=== PATIENT | male | born 1955 | race Caucasian/White ===

== ENCOUNTER → 2018-03-30 | Outpatient (CLI) | payer MEDICARE, BC ==
[~2018-03-30] MED LIST: CLON1 PO; DOXE50 PO; FURO40 PO; HARVONI 90-4001 EACH PO; HYDCHL25 PO; HYDMOR2 PO; INSDET100 SQ; INSULISPEN SC; LACT10SY PO; OXYC5 PO; POTCHL20ER PO; PROP10 PO; RIBA200 PO; RIFA550T2 PO; RXHYDMOR2 PO; SITA100T2 PO; TAMS.4ER PO; TESTOSTERONE CREAM TOP
== END ==
LOC: LAB SHORT 13:09 → LAB 13:09
DX: R19.7 Diarrhea, unspecified (principal)
CPT/HCPCS: 87493

== ENCOUNTER 2019-12-24 13:39 | Emergency (ER) | payer MEDICARE, BC ==
[~2019-12-24] VITALS: Ht 172.7 cm; Wt 93.9 kg
[2019-12-24 14:30] LABS: BASOPHILS ABSOLUTE AUTO 0.02 K/mm3 (0.00-0.23); BASOPHILS PERCENT AUTO 1 % (0-2); EOSINOPHILS ABSOLUTE AUTO 0.03 K/mm3 (0.00-0.68); EOSINOPHILS PERCENT AUTO 1 % (0-6); Hematocrit 52.9 % (37.0-53.0); Hemoglobin 18.4 g/dL (13.5-17.5); IMMATURE GRAN PERCENT AUTO 0 % (0-1); LYMPHOCYTES ABSOLUTE AUTO 0.52 K/mm3 (0.84-5.20); LYMPHOCYTES PERCENT AUTO 13 % (21-46); MONOCYTES ABSOLUTE AUTO 0.31 K/mm3 (0.16-1.47); MONOCYTES PERCENT AUTO 8 % (4-13); Mean Corpuscular HGB 31.6 pg (26.0-34.0); Mean Corpuscular HGB Conc 34.8 g/dL (31.5-36.5); Mean Corpuscular Volume 91 fL (80-100); Mean Platelet Volume 10.7 fL (9.1-12.4); NEUTROPHILS ABSOLUTE AUTO 3.27 K/mm3 (1.96-9.15); NEUTROPHILS PERCENT AUTO 79 % (41-73); RDW Coefficient Variation 13.8 % (11.7-14.2); RDW Standard Deviation 46.3 fL (35.1-46.3); Red Blood Cell Count 5.83 M/mm3 (4.30-5.90); White Blood Cell Count 4.15 K/mm3 (4.00-11.30)
[2019-12-24 14:33] LABS: Platelet Count 34 K/mm3 (150-400)
[2019-12-24 14:47] LABS: Alanine Aminotransfer (ALT/SGP 68 U/L (12-78); Albumin, Blood 4.2 g/dL (3.4-5.0); Albumin/Globulin Ratio 1.4 (0.8-1.8); Alk Phos 130 U/L (50-136); Anion Gap 6 mmol/L (6-16); Aspartate Aminotrans (AST/SGOT 52 U/L (12-37); Bilirubin, Total 1.6 mg/dL (0.1-1.0); Blood Urea Nitrogen 15 mg/dL (8-24); Bun/Creatinine Ratio 10.4 (12.0-20.0); CO2, Blood 28 mmol/L (21-32); Calcium, Blood 9.7 mg/dL (8.5-10.1); Chloride, Blood 104 mmol/L (98-108); Creatinine, Blood 1.44 mg/dL (0.60-1.20); Globulin, Blood 3.1 g/dL (2.2-4.0); Glomerular Filtration Rate 52 (60-); Glucose, Blood 187 mg/dL (70-99); Potassium, Blood 3.9 mmol/L (3.5-5.5); Sodium, Blood 138 mmol/L (136-145); Total Protein, Blood 7.3 g/dL (6.4-8.2); Troponin I <0.015 ng/mL (0.000-0.040)
[2019-12-24 15:10] LABS: Source, Urine Clean Catch
[2019-12-24 15:18] LABS: Appearance, Urine Clear (Clear); Bilirubin, Urine Neg (Neg); Blood, Urine 4+ (Neg); Color, Urine Yellow (P-Yellow); Glucose Qualitative, Urine Neg (Neg); Ketones, Urine Neg (Neg); Leukocyte Esterase, Urine Neg (Neg); Nitrite, Urine Neg (Neg); Protein, Urine 3+ (Neg); Urobilinogen, Urine NORM (Normal)
[2019-12-24 15:25] LABS: Bacteria Few /hpf; Squamous Epithelial Cells Rare /hpf (Few); White Blood Cells, Urine 0-2 /hpf (0-5)
[2019-12-24] MEDS ORDERED: Ativan1 MG PO (15:54)
== END 2019-12-24 16:31 | disposition home or self-care (01) ==
LOC: ER 13:39
PROVIDERS: Physician Assistant
DX: R10.9 Unspecified abdominal pain (principal); R53.83 Other fatigue; R41.0 Disorientation, unspecified; T36.8X5A Adverse effect of other systemic antibiotics, initial encounter; T36.3X5A Adverse effect of macrolides, initial encounter; R05 Cough; F41.9 Anxiety disorder, unspecified; Z88.1 Allergy status to other antibiotic agents; Z88.2 Allergy status to sulfonamides; Z88.8 Allergy status to other drugs, medicaments and biological substances; E11.9 Type 2 diabetes mellitus without complications; J44.9 Chronic obstructive pulmonary disease, unspecified; D86.9 Sarcoidosis, unspecified; Z79.4 Long term (current) use of insulin; Z79.899 Other long term (current) drug therapy
CPT/HCPCS: 70450; 71045; 80053; 81001; 84484; 85025; 93005; 93010; 99284-25

== ENCOUNTER → 2020-03-16 | Outpatient (CLI) | payer MEDICARE, BC ==
[~2020-03-16] MED LIST changes: +Ativan1 MG PO
== END | disposition home or self-care (01) ==
LOC: LAB 08:12 → LAB SHORT 08:12
DX: L57.0 Actinic keratosis (principal)
CPT/HCPCS: 88305

== ENCOUNTER 2021-04-12 21:55 | Emergency (ER) | payer MEDICARE, BC ==
[~2021-04-12] VITALS: Ht 172.7 cm; Wt 90.7 kg
[2021-04-13 02:28] LABS: Source, Urine Catheter
[2021-04-13 02:31] LABS: Bilirubin, Urine Neg (Neg); Blood, Urine 5+ (Neg); Glucose Qualitative, Urine Neg (Neg); Ketones, Urine 3+ (Neg); Leukocyte Esterase, Urine 1+ (Neg); Nitrite, Urine Neg (Neg); Protein, Urine 4+ (Neg); Urobilinogen, Urine 1+ (Normal)
[2021-04-13 02:35] LABS: Color, Urine Yellow (P-Yellow)
[2021-04-13 02:38] LABS: Appearance, Urine Hazy (Clear)
[2021-04-13 02:39] LABS: Amorphous Light (0-Heavy); Bacteria Few /hpf; Mucus Mod (0-Heavy); Red Blood Cells, Urine 50-100 /hpf (0-2); Squamous Epithelial Cells Not Seen /hpf (Few)
== END 2021-04-13 03:15 | disposition home or self-care (01) ==
LOC: ER 21:55
PROVIDERS: Emergency Medicine
DX: R39.11 Hesitancy of micturition (principal); R31.9 Hematuria, unspecified; E11.40 Type 2 diabetes mellitus with diabetic neuropathy, unspecified; F17.220 Nicotine dependence, chewing tobacco, uncomplicated; Z79.4 Long term (current) use of insulin; Z88.2 Allergy status to sulfonamides; Z79.899 Other long term (current) drug therapy
CPT/HCPCS: 51798; 81001; 87086; 99283-25; J7120

== ENCOUNTER 2025-01-03 09:13 | Day surgery (SDC) | payer MEDICARE, BC ==
[~2025-01-03] VITALS: Ht 172.7 cm; Wt 85.9 kg
[2025-01-03] VITALS (15 sets, daily range): BP systolic 101–133; BP diastolic 63–86
[2025-01-03] MEDS ORDERED: CeFAZolin Sodium 2,000 MG in NS 100 ML IV SCH (09:25)
[2025-01-03] MEDS ORDERED: Lactated Ringer's 1,000 ML IV SCH (09:25)
[2025-01-03] MEDS ORDERED: INSULIN GL100 UNIT/2 SC (09:59)
[2025-01-03] MEDS ORDERED: INSULIN AS100 UNIT/8 PO (10:00)
[2025-01-03] MEDS ORDERED: ALDACTONE100 MG PO (10:03)
[2025-01-03] MEDS ORDERED: FentaNYL Citrate 50 MCG/ML 2 ML Injection IV PRN ×3 (10:05→10:10)
[2025-01-03] MEDS ORDERED: Lidocaine HCl 1% 5 ML SYR INJ ONE (10:05)
[2025-01-03] MEDS ORDERED: Ondansetron HCl 2 MG / ML 2ML Vial IV PRN (10:05)
[2025-01-03] MEDS ORDERED: HYDROmorphone HCl/Pf 1MG SYR IV PRN (10:05)
[2025-01-03] MEDS ORDERED: Seroquel Xr50 MG PO (10:06)
[2025-01-03] MEDS ORDERED: CeFAZolin Sodium 2,000 MG VIAL ONE (10:13)
[2025-01-03] MEDS ORDERED: Bupivacaine 0.5% HCl 5 MG/ML 30MLVIAL ONE (10:57)
--- NOTE | 2025-01-03 11:02 | NUR ---
DR STEINER NOTIFIED THAT PATIENT ADMITS TO TAKING CHEWING TOBACCO AT 0900 TODAY. PATIENT STATES HE DID NOT SWALLOW IT.
[2025-01-03] MEDS ORDERED: FentaNYL Citrate 50 MCG/ML 2 ML Injection ONE ×2 (11:06→12:44)
[2025-01-03] MEDS ORDERED: Etomidate 2MG / ML 10ML Vial ONE (11:10)
[2025-01-03] MEDS ORDERED: OxyCODONE HCL 5 MG TAB PO PRN (12:05)
[2025-01-03] MEDS ORDERED: Dexamethasone Sod Phos 10 MG/ML 1ML VIAL ONE (12:09)
[2025-01-03] MEDS ORDERED: Lidocaine HCl 2% 20 ML MDV ONE (12:09)
[2025-01-03] MEDS ORDERED: Labetalol HCL 5 MG/ML 4ML Injection (Single Dose) ONE (12:09)
[2025-01-03] MEDS ORDERED: Ondansetron HCl 2 MG / ML 2ML Vial ONE (12:09)
[2025-01-03] MEDS ORDERED: Glycopyrrolate 0.2 MG/ML 5ML VIAL ONE (12:26)
[2025-01-03] MEDS ORDERED: Neostigmine Methylsulfate 5MG/5ML SYR ONE (12:26)
--- NOTE | 2025-01-03 14:25 | NUR ---
DISCHARGE PT A&OX4/VSS/RA/C&DBS/FOLLOWS COMMANDS/EYES OPEN/TALKING, PAIN TREATED WITH OXY 5MG X1 WITH GOOD RESULTS, DENIES NAUSEA/BIRGIT PO CRACKERS AND JUICE, CATH/ DRESSING CDI, DC INS PROVIDED TO PT AND -GREEN BELT/COPY SENT INCLUDED 1 NARC SCRIPT/IND CATH INSTRUC/ORDER(FAXED TO [facility] WITH COPY OF INSURANCE CARDS), LEFT WITH PLEURX KIT FOR HOME; LEFT VIA WC WITH DC VOL TO GO HOME WITH /GREEN BELT. IV DC'D.
== END 2025-01-03 14:46 | disposition home or self-care (01) ==
LOC: ORD 09:13 → ORSCMMR 09:13 → ORD 09:14 → ORSCMMR 09:14 → ORD 10:30 → ORSCMMR 14:46 → ORD 01-04 23:00 → ORSCMMR 01-04 23:00
PROVIDERS: Surgery
PROC: 0W9930Z Drainage of Right Pleural Cavity with Drainage Device, Percutaneous Approach (ICD-10-PCS; principal; 2025-01-03 10:30)
DX: K72.10 Chronic hepatic failure without coma (principal); K70.31 Alcoholic cirrhosis of liver with ascites; Z86.19 Personal history of other infectious and parasitic diseases; E11.42 Type 2 diabetes mellitus with diabetic polyneuropathy; F41.9 Anxiety disorder, unspecified; F32.A Depression, unspecified; Z85.828 Personal history of other malignant neoplasm of skin; Z79.4 Long term (current) use of insulin; Z79.899 Other long term (current) drug therapy; F17.220 Nicotine dependence, chewing tobacco, uncomplicated
CPT/HCPCS: 82947; 86900; 86901; A9270; C1729; J0690; J1100; J2405; J2710; J3010; J7120